=== PATIENT | female | born 1995 | race Caucasian/White ===

== ENCOUNTER 2023-06-04 13:12 | Emergency (ER) | payer SELFPAY ==
[2023-06-04 13:15] VITALS: BP 138/87; PULSE 100; RESP 19; TEMP 36.6; O2SAT 100; BMI 24.8
--- NOTE | 2023-06-04 13:15 | ED.EYEPROB ---
HPI - Eye Problem General Chief complaint: Eye Problems Stated complaint: ? Eye Infection Time Seen by Provider: 06/04/23 13:44 Source: patient and RN notes reviewed Mode of arrival: ambulatory Limitations: no limitations History of Present Illness HPI Narrative: This is a 27-year-old female presenting to the emergency department for evaluation of bilateral eye swelling times 2 weeks. Patient reports that over the last 2 weeks she has noticed increased swelling to her right upper lid and left lower lid. She has been applying warm compresses to the area without any relief. She states that she has a history of styes, states that since December she has had ongoing problems with styes. Denies any new soaps, lotions, detergents. She denies any fevers, chills. She does not wear eye makeup or false eyelashes. She does have an eye doctor who she can follow-up with. She denies any visual changes, blurred vision, eye pain. Denies any other complaints or concerns at this time. Onset (ago): week(s) Onset description: gradual Duration: constant Location: both eyes Mechanism: none Associated symptoms: none Treatments Prior to Arrival: none Related Data Previous Rx's Medication Instructions Recorded erythromycin 5 mg/gram (0.5 %) eye 0.5 inch ophthalmic (eye) QID 7 06/04/23 ointment days #3.5 grams Allergies Allergy/AdvReac Type Severity Reaction Status Date / Time No Known Allergies Allergy Verified 06/04/23 13:14 Review of Systems Review of Systems: Yes all other systems are reviewed and are negative [facility] Social History Social History Advance Directives: No Advance Directives Information Provided: No Physical Exam Vital Signs: Vital Signs: Last Vital Signs Temp 98 F 06/04/23 13:15 Pulse 100 06/04/23 13:15 Resp 19 06/04/23 13:15 BP 138/87 06/04/23 13:15 Pulse Ox 100 06/04/23 13:15 O2 Del Method Room Air 06/04/23 13:15 BMI result Body Mass Index 24.8 Const: Other: General: Awake, alert, and oriented X3. No acute distress. HEENT: Left external eyelid at the eyelash line there is a 2 mm pustule noted with surrounding edema and erythema, no periorbital edema or erythema. No orbital entrapment. Conjunctiva is not injected. Right eye with upper eyelid edematous, and erythematous. No discrete hordeolum noted. EOMI, PERRLA. No fluorescein uptake on fluorescein examination Normal inspection CVS: Normal heart rate and rhythm. Pulses normal. Respiratory: No respiratory distress Skin: Warm, dry, no rashes noted to exposed skin. Normal skin color. Normal skin turgor. Extremities: Normal to inspection Neuro: Oriented X 3. No motor deficit. No sensory deficit. Course Course Course Narrative: RME:?27 yo female here for eval of eyelid pain/swelling x2 weeks. began with right eye, has now moved to left eye. applying warm compresses every day throughout day without relief. endorses fluffy vision to left eye and drainage from right eye. endorses occasional pain w/ eye movements. endorses stye last year requiring abx. consistent with stye however given vision changes VA, tetracaine, fluoresceine stain ordered Full HPI, ROS and PE to be performed by the primary ED provider. Medications Administered Discontinued Medications Generic Name Dose Route Start Last Admin Trade Name Ramonq PRN Reason Stop Dose Admin Fluorescein Sodium 1 strip 06/04/23 13:17 06/04/23 13:57 Fluorescein Sodium Strip EYE-BOTH 06/04/23 13:18 1 strip ONCE ONE Administration Tetracaine HCl 1 drop 06/04/23 13:17 06/04/23 13:57 Tetracaine Hcl/Pf 0.5% Oph Hannah 4 Ml Drops EYE-BOTH 06/04/23 13:18 1 drop ONCE ONE Administration Medical Decision Making Medical Decision Making MDM Narrative: This is a 27-year-old female presenting to the emergency department with complaints of bilateral eye redness, swelling for the last several weeks. On arrival, vital signs within normal limits. Patient has a hordeolum noted to her left lower eyelid as well as blepharitis noted to her right upper eyelid. Fluorescein stain was performed, no fluorescein uptake noted. She has no eye tenderness, vision changes to suggest periorbital or orbital cellulitis. She has no entrapment. PERRLA, EOMI. Will treat with topical erythromycin ointment, advised to follow-up with eye physician. She understands and agrees with plan. Patient given return precautions. Patient stable for discharge Differential Diagnosis Differential Diagnoses: The differential diagnosis associated with the presentation includes Hordeolum, blepharitis, periorbital cellulitis, orbital cellulitis, corneal abrasion, laceration, foreign body Discharge Plan Discharge Clinical Impression: Hordeolum, Blepharitis Patient Disposition: Home, Self-Care Instructions: Stye (ED), Blepharitis (ED) Additional Instructions: You were seen in the emergency department due to bilateral eye redness and swelling. Use erythromycin as directed for the next 7 days. Warm compresses to both of your eyes at least 5-6 times per day will help eliminate your symptoms If any new or worsening symptoms occur including but not limited to worsening swelling, redness, fevers or chills, please return for re-evaluation. Follow-up with your eye doctor. Prescriptions: New erythromycin 5 mg/gram (0.5 %) ointment 0.5 inch ophthalmic (eye) QID 7 Days Qty: 3.5 0RF Stand Alone Forms: Work/School Release Interventions: ED Discharge Assessment Last Done: 06/04/23 15:31 Discharge Date/Time: 06/04/23 15:53
[2023-06-04] MEDS: Fluorescein Sodium STRIP 1 STRIP EYE-BOTH (13:57)
[2023-06-04] MEDS: Tetracaine HCl/PF 0.5% Oph Sol 4 ML DROPS 1 DROP EYE-BOTH (13:57)
== END 2023-06-04 15:53 | disposition home or self-care (01) ==
PROVIDERS: Emergency Provider Emergency Medicine
DX: H00.019 Hordeolum externum unspecified eye, unspecified eyelid (principal); H01.006 Unspecified blepharitis left eye, unspecified eyelid; H01.003 Unspecified blepharitis right eye, unspecified eyelid; H57.13 Ocular pain, bilateral
CPT/HCPCS: 99282; 99283

== ENCOUNTER 2023-06-05 09:51 | Emergency (ER) | payer OTHER, SELFPAY ==
[2023-06-05 09:54] VITALS: BP 132/95; PULSE 82; RESP 18; TEMP 36.7; O2SAT 99; BMI 24.8
--- NOTE | 2023-06-05 10:44 | ED.EYEPROB ---
HPI - Eye Problem General Chief complaint: Eye Problems Stated complaint: seen 06/05, medication allergic reaction Time Seen by Provider: 06/05/23 10:13 Source: patient Mode of arrival: ambulatory Limitations: no limitations History of Present Illness HPI Narrative: this is a 27-year-old female who has a history of styes and is followed by an customer care associate. She was seen here yesterday after noticing 2 weeks of increasing swelling to the right upper eyelid and left lower eyelid despite using warm compresses. She was diagnosed with an hordeolum as well as blepharitis and was discharged home with erythromycin eye ointment. Patient reports she has been using this and using warm compresses with continued symptoms. She notices that after using the ointment she does have some blurry vision which resolves after a brief time. she does have swelling to the eyelids as well as some discomfort but denies any discharge from the eyes, photophobia, pain in the eyes Related Data Previous Rx's Medication Instructions Recorded erythromycin 5 mg/gram (0.5 %) eye 0.5 inch ophthalmic (eye) QID 7 06/04/23 ointment days #3.5 grams doxycycline monohydrate 100 mg 100 mg PO BID #20 caps 06/05/23 capsule fluconazole 150 mg tablet 150 mg PO Q3D 2 doses #2 tabs 06/05/23 Allergies Allergy/AdvReac Type Severity Reaction Status Date / Time No Known Allergies Allergy Verified 06/05/23 09:53 Review of Systems Review of Systems: Yes all other systems are reviewed and are negative Constitutional: Constitutional: Reports no additional constitutional complaints, Denies body ache(s), Denies chills, Denies fever(s), Denies headache(s) and Denies weakness Eyes: Eyes: Reports no additional eye complaints, Reports blurry vision, Denies change in vision, Denies eye discharge, Reports irritation, Denies eye pain and Denies photophobia Comments: +eyelid swelling ENT: Reports system reviewed and no additional complaints, except as documented, Denies dizziness, Denies headache(s), Denies nasal congestion, Denies nasal discharge and Denies neck pain Cardiovascular: Cardiovascular: Reports no additional cardiovascular complaints, Denies chest pain, Denies leg edema and Denies dyspnea Respiratory: Respiratory: Reports no additional respiratory complaints, Denies cough and Denies dyspnea Gastrointestinal: Gastrointestinal: Reports no additional gastrointestinal complaints, Denies abdominal pain, Denies diarrhea, Denies nausea and Denies vomiting Genitourinary: Genitourinary: Reports no additional female genitourinary complaints and Denies urinary incontinence Musculoskeletal: Musculoskeletal: Reports no additional musculoskeletal complaints, Denies back pain, Denies arthralgias, Denies joint swelling, Denies neck pain, Denies numbness and Denies tingling Integumentary/Breasts: Skin/Breast: Reports system reviewed and no additional complaints, except as docu and Denies rash Neurologic: Reports system reviewed and no additional complaints, except as documented, Denies Abnormal speech present, Denies dizziness, Denies headache(s), Denies numbness, Denies tingling and Denies weakness PMFSH Past Medical History Attestation statement: The following information was validated with the patient. Source: old records reviewed and nursing notes reviewed Social History Social History Advance Directives: No Advance Directives Information Provided: No Physical Exam Vital Signs: Vital Signs: Last Vital Signs Temp 98.0 F 06/05/23 09:54 Pulse 82 06/05/23 09:54 Resp 18 06/05/23 09:54 BP 132/95 H 06/05/23 09:54 Pulse Ox 99 06/05/23 09:54 O2 Del Method Room Air 06/05/23 09:54 BMI result Body Mass Index 24.8 Const: General: cooperative, healthy appearing, comfortable and no acute distress Orientation/consciousness: patient oriented x3 Limitations: no limitations HEENT: Head: Yes normal to inspection Ears: hearing grossly normal bilaterally General nose exam: Normal external nose present Face and sinus: Yes normal facial exam Mouth: Normal oral and palatal mucosa present Throat: Yes posterior oropharynx normal Eyes: Other: there is a hordeolum noticed to the right upper eyelid and left lower eyelid. There is swelling and erythema extending across both of the right upper eyelid and left lower eyelid General: appearance normal, both eyes and all related structures Visual Govea: normal visual govea by confrontation Alignment and Position: alignment normal Periorbital: periorbital findings normal Conjunctivae: conjunctivae normal Sclerae: sclerae normal Corneas: corneas normal Pupils: Equal, round and reactive pupils present EOM: EOMs intact bilaterally Direct Ophthalmoscopy: normal light reflex, no photophobia, anterior chamber normal and No photophobia Neck: Neck: Yes normal visual inspection Chest: Chest palpation & inspection: normal inspection of the chest Resp: Effort & Inspection: normal respiratory effort Auscultation: clear to auscultation bilaterally Cardio: Rate: regular rate Rhythm: regular rhythm Peripheral pulses: Peripheral pulses 2+ throughout GI: Inspection: Yes normal to inspection Palpation (GI): Soft to palpation and nontender Auscultation: normal bowel sounds Back/Spine/Pelvis: Thoracic/Lumbar Spine: thoracic and lumbar spine normal to inspection Skin: General skin exam: no rashes or lesions noted Neuro: General: patient oriented x3, no focal motor deficits and normal sensation to monofilament Cranial nerves: Yes Equal, round and reactive pupils present Cognition (Neuro): normal cognition Speech: No Abnormal speech present Gait exam (Neuro): Normal gait present Motor exam (neuro): 5/5 motor strength present throughout Extrem: General: Yes normal to inspection Medical Decision Making Medical Decision Making MDM Narrative: this is a 27-year-old female who has a history of styes and is followed by an customer care associate. She was seen here yesterday after noticing 2 weeks of increasing swelling to the right upper eyelid and left lower eyelid despite using warm compresses. She was diagnosed with an hordeolum as well as blepharitis and was discharged home with erythromycin eye ointment. Patient reports she has been using this and using warm compresses with continued symptoms. She notices that after using the ointment she does have some blurry vision which resolves after a brief time. she does have swelling to the eyelids as well as some discomfort but denies any discharge from the eyes, photophobia, pain in the eyes there is a hordeolum noticed to the right upper eyelid and left lower eyelid. There is swelling and erythema extending across both of the right upper eyelid and left lower eyelid exam otherwise is benign. I would recommend the patient continue erythromycin ointment as well as topical compresses but I will also add an oral antibiotic to cover blepharitis. Patient does have an customer care associate who recommended she continue to follow-up with next week. I did review worrisome signs and symptoms of when to return to the emergency room. Comfortable plan for discharge home Differential Diagnosis Differential Diagnoses: The differential diagnosis associated with the presentation includes blepharitis, hordeolum, chalazion low suspicion for conjunctivitis, corneal abrasion, corneal foreign body, orbital cellulitis Admission/Observation Consideration of admission/observation: Escalation of care including admission/observation considered External Record Review External record reviewed: Outside ED record Tests considered The following testing was considered but not selected: low suspicion for orbital cellulitis warranting additional imaging Prescription Management I considered prescription management with: Antibiotic Discharge Plan Discharge Clinical Impression: Hordeolum, Blepharitis Patient Disposition: Home, Self-Care Instructions: Stye (ED), Blepharitis (ED) Additional Instructions: continue the ointment but use it twice daily Warm compresses as often as possible Call your eye doctor Wednesday to set up a follow-up appointment Prescriptions: New doxycycline monohydrate 100 mg capsule 100 mg PO BID Qty: 20 0RF fluconazole 150 mg tablet 150 mg PO Q3D Qty: 2 0RF No Action erythromycin 5 mg/gram (0.5 %) ointment 0.5 inch ophthalmic (eye) QID 7 Days Qty: 3.5 0RF
== END 2023-06-05 11:02 | disposition home or self-care (01) ==
PROVIDERS: Emergency Provider Emergency Medicine
DX: H00.015 Hordeolum externum left lower eyelid (principal); H00.011 Hordeolum externum right upper eyelid; H01.009 Unspecified blepharitis unspecified eye, unspecified eyelid
CPT/HCPCS: 99283

== ENCOUNTER 2023-09-15 07:25 | Emergency (ER) | payer MEDICAID, SELFPAY ==
[2023-09-15 07:45] VITALS: BP 120/64; PULSE 99; RESP 18; TEMP 37.1; O2SAT 99; BMI 23.0
[2023-09-15 07:59] LABS: MANUAL DIFF FLAG NO
[2023-09-15 08:07] LABS: Basophils Absolute Auto 0.1 X10*3/uL (0.0-0.2); Basophils Percent Auto 0.4 % (0-2); Eosinophils Percent Auto 0.2 % (0-4); Hematocrit 40.6 % (37.0-47.0); Hemoglobin 14.4 g/dl (12.0-16.0); Imm Gran Abs Auto 0.07 X10*3/uL (0.00-0.03); Imm Gran Pct Auto 0.6 % (0.0-0.4); Lymphocytes Absolute Auto 1.7 X10*3/uL (1.2-4.9); Lymphocytes Percent Auto 14.8 % (20-40); Mean Corpuscular HGB Conc 35.5 g/dl (31.0-35.0); Mean Corpuscular Volume 84.6 fL (80.0-98.0); Mean Platelet Volume 9.9 fL (9.4-12.3); Monocytes Percent Auto 8.6 % (2-11); Neutrophils Absolute Auto 8.8 x10*3/uL (2.0-8.3); Neutrophils Percent Auto 75.4 % (45-73); Platelet Count 294 X10*3/uL (160-400); White Blood Count 11.6 X10*3/uL (4.8-10.8)
[2023-09-15 08:22] LABS: Alanine Aminotransferase 9 U/L (0-31); Albumin Level 4.6 g/dL (3.5-5.0); Alkaline Phosphatase 60 U/L (39-117); Anion Gap 15 (12-20); Aspartate Amino Transferase 16 U/L (5-31); Blood Urea Nitrogen 8 mg/dL (9-16); Calcium 10.4 mg/dL (8.4-10.2); Carbon Dioxide 20 mmol/L (22-29); Chloride 105 mmol/L (96-108); Creatinine Clr Calc Pharmacy 86.3; Estimated Glomerular Filt Rate > 60; Glucose Random 96 mg/dL (60-115); Potassium 3.7 mmol/L (3.3-5.1); Sodium 136 mmol/L (135-145); Total Protein 8.2 g/dL (6.5-8.0)
[2023-09-15 08:28] LABS: Appearance Urine Cloudy; Color Urine Dark Yellow; Glucose Urine UA Negative (Negative); Leukocyte Esterase Urine Negative (Negative); Nitrite Urine Negative (Negative); Specific Gravity - Urine >= 1.030 (1.005-1.025); UMIC TRIGGER UACC YES; Urine Blood Trace (Negative); Urine Ketones >=160 mg/dL (Negative); Urine Protein 30 (1+) mg/dL (Neg-Trace)
[2023-09-15 08:42] LABS: Bacteria Urine 4+ (None Seen); WBC Urine 0-5 /HPF (0-5)
[2023-09-15 08:43] LABS: HCG Quantitative 57939 mIU/mL
[2023-09-15 08:46] LABS: Influenza A PCR NEGATIVE (Negative); Influenza B PCR NEGATIVE (Negative); Resp Syncy Virus RNA Qual PCR NEGATIVE (Negative); SARS COV2 PCR INHOUSE NEGATIVE (Negative)
[2023-09-15] MEDS: 0.9 % Sodium Chloride 1,000 ML 999 ML IV ×3 (08:47→10:28)
--- NOTE | 2023-09-15 08:57 | ED.NAVMDI ---
HPI - Nausea/Vomiting/Diarrhea General Chief complaint: Nausea/Vomiting/Diarrhea Stated complaint: miscarriage, vomiting Time Seen by Provider: 09/15/23 08:38 Source: patient and old records reviewed Mode of arrival: ambulatory Limitations: no limitations History of Present Illness ED Provider: DENISE GALVAN Narrative: 27 yo female with D = US confirmed IUP with OB and [facility], she was recently worked up for vaginal bleeding over the weekend that has resolved. She notes she has had persistent n/v that has not responded to oral medications by OB or ER. She has diffuse mild cramping abdominal pain today and persistent n/v that will not go away x 2 days. She is weak and tired. MD elicited complaint: nausea, vomiting and abdominal pain Pertinent past history: other (hyperemesis) Onset (ago): day(s) (2) Description of vomiting: watery Associated nausea: Yes Associated abdominal pain: Yes Location of pain: diffuse Radiation: diffuse Pain consistency: intermittent Severity: mild Quality: aching Exacerbating factors: eating Relieving factors: none Context: other (hyperemesis) Associated symptoms: loss of appetite, nausea/vomiting and weakness Treatment prior to arrival: other Related Data Previous Rx's ?Medication ?Instructions ?Recorded erythromycin 5 mg/gram (0.5 %) eye 0.5 inch ophthalmic (eye) QID 7 06/04/23 ointment days #3.5 grams doxycycline monohydrate 100 mg 100 mg PO BID #20 caps 06/05/23 capsule fluconazole 150 mg tablet 150 mg PO Q3D 2 doses #2 tabs 06/05/23 ondansetron 4 mg disintegrating 4 mg PO Q8H PRN nausea and 09/15/23 tablet vomiting #20 tabs promethazine 25 mg rectal 25 mg VT Q6H PRN nausea and 09/15/23 suppository vomiting #12 ea Allergies Allergy/AdvReac Type Severity Reaction Status Date / Time No Known Allergies Allergy Verified 09/15/23 07:48 Review of Systems Review of Systems: Constitutional : No Weight loss, No Fever, No Chills ENT/Mouth : No sore throat, No Rhinorrhea Eyes: No Swelling, No Redness Cardiovascular : No Chest Pain, No SOB, NoEdema Respiratory : No Cough, No Sputum, No Wheezing Gastrointestinal : Positive Nausea, Positive Vomiting, no Diarrhea, positive abdominal Pain, No Hematochezia, No Melena Genitourinary : No Dysuria, No Urinary Frequency, No Hematuria, No Urgency Musculoskeletal : No joint pain, No Myalgias, No Joint Swelling Skin : No Skin Lesions, No rash Neuro : No Weakness, No Numbness, No Dizziness, No Headache All other systems reviewed and are negative. Gastrointestinal: Gastrointestinal: Reports nausea PMFSH Past Medical History Attestation statement: The following information was validated with the patient. Source: old records reviewed Medical History Hyperemesis Social History Social History Smoked in Last 30 Days: No Use of substances other than those prescribed or required for medical reasons: No Advance Directives: No Advance Directives Information Provided: No Patient : Yes Physical Exam Vital Signs: Vital Signs: Last Vital Signs Temp 98.1 F 09/15/23 13:16 Pulse 62 09/15/23 13:16 Resp 16 09/15/23 13:16 BP 97/49 L 09/15/23 13:16 Pulse Ox 99 09/15/23 13:16 O2 Del Method Room Air 09/15/23 13:16 BMI result Body Mass Index 23.0 Appearance: Alert. Oriented X3. Mild acute distress. Eyes: Pupils equal, round and reactive to light. ENT: Pharynx dry MM Neck: Normal inspection. Neck supple. CVS: Normal heart rate and rhythm. Pulses normal. Respiratory: No respiratory distress. Breath sounds normal. Abdomen: Soft and non-tender. benign Skin: Skin warm and dry. pale skin color. Extremities: No lower extremity edema. Neuro: Oriented X 3. No motor deficit. No sensory deficit. Medications Administered Discontinued Medications Generic Name Dose Route Start Last Admin Trade Name Freq PRN Reason Stop Dose Admin Diphenhydramine HCl 25 mg 09/15/23 08:38 09/15/23 09:04 Diphenhydramine Hcl 50 Mg/Ml Vial IVPUSH 09/15/23 08:39 25 mg ONCE ONE Administration Sodium Chloride 1,000 mls @ 999 mls/hr 09/15/23 08:38 09/15/23 10:28 Ns IV 09/15/23 09:38 Infused .Q1H1M ONE Infusion Sodium Chloride 1,000 mls @ 999 mls/hr 09/15/23 08:38 09/15/23 10:28 Ns IV 09/15/23 09:38 Infused .Q1H1M ONE Infusion Sodium Chloride 1,000 mls @ 999 mls/hr 09/15/23 09:28 09/15/23 11:52 Ns IV 09/15/23 10:28 Infused .Q1H1M ONE Infusion Metoclopramide HCl 10 mg 09/15/23 08:38 09/15/23 09:04 Metoclopramide Hcl 10 Mg/2 Ml Vial IVPUSH 09/15/23 08:39 10 mg ONCE ONE Administration Ondansetron HCl 4 mg 09/15/23 09:28 09/15/23 10:00 Ondansetron Hcl 4 Mg/2 Ml Vial IVPUSH 09/15/23 09:29 4 mg ONCE ONE Administration Procedures Procedure Narrative Procedure Narrative: US bedside + cardiac flicker + IUP no free fluid Medical Decision Making Medical Decision Making [facility] Narrative: 27 yo female with 7 weeks D = US here with c/o persistent n/v x weeks now cannot keep down PO has abdominal cramps does not feel well at this time will need labs, UA, IVF x 2L, supportive medications has already has US confirming IUP denies vaginal bleeding today. Will PO challenge after fluids. Differential Diagnosis Differential Diagnoses: The differential diagnosis associated with the presentation includes hyperemesis, dehydration Admission/Observation Consideration of admission/observation: Escalation of care including admission/observation considered suspect error in BP 80/30 asymptomatic and laying on her side at this time tolerating PO feels much better stable for DC Lab Data [facility] Lab Attestation statement: I reviewed the patient's lab results. 09/15/23 07:55 09/15/23 07:55 Labs: Lab Results 09/15/23 09/15/23 Range/Units 07:55 08:19 WBC 11.6 H (4.8-10.8) X10*3/uL RBC 4.80 (4.20-5.50) X10*6/uL Hgb 14.4 (12.0-16.0) g/dl Hct 40.6 (37.0-47.0) % MCV 84.6 (80.0-98.0) fL MCH 30.0 (27.0-33.0) pg MCHC 35.5 H (31.0-35.0) g/dl RDW 13.0 (11.0-16.0) % Plt Count 294 (160-400) X10*3/uL MPV 9.9 (9.4-12.3) fL Immature Gran % (Auto) 0.6 H (0.0-0.4) % Neut % (Auto) 75.4 H (45-73) % Lymph % (Auto) 14.8 L (20-40) % [place] % (Auto) 8.6 (2-11) % Eos % (Auto) 0.2 (0-4) % Baso % (Auto) 0.4 (0-2) % Lymph # (Auto) 1.7 (1.2-4.9) X10*3/uL [place] # (Auto) 1.0 (0.1-1.2) X10*3/uL Eos # (Auto) 0.0 (0.0-0.4) X10*3/uL Baso # (Auto) 0.1 (0.0-0.2) X10*3/uL Abs Immat Gran (auto) 0.07 H (0.00-0.03) X10*3/uL Absolute Neuts (auto) 8.8 H (2.0-8.3) x10*3/uL Absolute Nucleated RBC 0.000 (0.0-0.012) X10*3/uL Nucleated RBC % (auto) 0.0 (0.0-0.2) /100WBC Sodium 136 (135-145) mmol/L Potassium 3.7 (3.3-5.1) mmol/L Chloride 105 (96-108) mmol/L Carbon Dioxide 20 L (22-29) mmol/L Anion Gap 15 (12-20) BUN 8 L (9-16) mg/dL Creatinine 0.81 (0.5-1.4) mg/dL Estim Creat Clear Calc 86.3 Estimated GFR > 60 Random Glucose 96 (60-115) mg/dL Calcium 10.4 H (8.4-10.2) mg/dL Total Bilirubin 1.0 (0.0-1.0) mg/dL AST 16 (5-31) U/L ALT 9 (0-31) U/L Alkaline Phosphatase 60 (39-117) U/L Total Protein 8.2 H (6.5-8.0) g/dL Albumin 4.6 (3.5-5.0) g/dL Beta HCG, Quant 42581 mIU/mL Urine Color Dark Yellow Urine Appearance Cloudy Urine pH 6.0 (5.0-9.0) Ur Specific [place] >= 1.030 H (1.005-1.025) Urine Protein 30 (1+) H (Neg-Trace) mg/dL Urine Glucose (UA) Negative (Negative) mg/dL Urine Ketones >=160 (Negative) mg/dL Urine Blood Trace H (Negative) Urine Nitrite Negative (Negative) Ur Leukocyte Esterase Negative (Negative) Urine RBC 6-10 H (0-2) /HPF Urine WBC 0-5 (0-5) /HPF Ur Squamous Epith Cells 11-20 (0-2) /HPF Urine Bacteria 4+ (None Seen) Hyaline Casts 3-5 (0-2) /LPF Influenza Type A (PCR) NEGATIVE (Negative) Influenza Type B (PCR) NEGATIVE (Negative) RSV RNA Qual (PCR) NEGATIVE (Negative) SARS-CoV-2 RNA (RT-PCR) NEGATIVE (Negative) Independent Interpretation I performed an independent interpretation of an: Ultrasound Interpretation: + FM, flicker seen for cardiac activity + IUP noted Radiology Impression Discussion of test interpretation with radiology: I have reviewed the radiologist's reading. External Record Review External record reviewed: Office record Prescription Management I considered prescription management with: Other Critical Care Time Critical Care Time Critical Care Time: Yes Total Critical Care Time: 60 Attestation: 3L of IVF for resuscitation, review of records, repeat assessment I attest to this time spent taking care of the patient Discharge Plan Discharge Clinical Impression: Hyperemesis Patient Disposition: Home, Self-Care Instructions: Hyperemesis Gravidarum (ED) Additional Instructions: drink plenty of fluids stay hydrated eat a balanced diet and return for any worsening symptoms or concerns follow up with your OBGYN Prescriptions: New promethazine 25 mg suppository 25 mg VT Q6H PRN (Reason: nausea and vomiting) Qty: 12 0RF ondansetron 4 mg tablet,disintegrating 4 mg PO Q8H PRN (Reason: nausea and vomiting) Qty: 20 0RF No Action erythromycin 5 mg/gram (0.5 %) ointment 0.5 inch ophthalmic (eye) QID 7 Days Qty: 3.5 0RF doxycycline monohydrate 100 mg capsule 100 mg PO BID Qty: 20 0RF fluconazole 150 mg tablet 150 mg PO Q3D Qty: 2 0RF Stand Alone Forms: Work/School Release Print Language: Ma[place]
[2023-09-15] MEDS: Metoclopramide HCl 10 MG/2 ML VIAL IVPUSH (09:04)
[2023-09-15] MEDS: diphenhydrAMINE HCL 50 MG/ML VIAL 25 MG IVPUSH (09:04)
[2023-09-15] MEDS: ondansetron HCL 4 MG/2 ML VIAL IVPUSH (10:00)
[2023-09-15 11:18] VITALS: BP 102/64; PULSE 52; RESP 18; TEMP 36.9; O2SAT 99
[2023-09-15 12:00] VITALS: BP 80/35; PULSE 72; TEMP 36.9; O2SAT 98
[2023-09-15 13:16] VITALS: BP 97/49; PULSE 62; RESP 16; TEMP 36.7; O2SAT 99
[2023-09-15 13:50] VITALS: BP 100/64; PULSE 64; RESP 18; TEMP 36.8; O2SAT 99
== END 2023-09-15 13:51 | disposition home or self-care (01) ==
PROVIDERS: Emergency Provider Emergency Medicine
DX: O21.0 Mild hyperemesis gravidarum (principal); Z3A.01 Less than 8 weeks gestation of pregnancy; Z03.818 Encounter for observation for suspected exposure to other biological agents ruled out
CPT/HCPCS: 0241U; 36415; 80053; 81001; 84702; 85025; 96361; 96374; 96375; 99284; J1200; J2405; J2765

== ENCOUNTER 2025-01-09 19:02 | Emergency (ER) | payer MEDICAID, SELFPAY ==
--- NOTE | ~2025-01-09 | XR_ITS ---
CLINICAL HISTORY: abd pain 1 view abdomen Comparison: None provided Findings: No pneumoperitoneum or pneumatosis. No abnormal calcifications. No acute fractures. IMPRESSION: The bowel gas pattern is within normal limits This document has been electronically signed by: Padmaja Lopez MD on 01/09/2025 20:24:47
[2025-01-09 19:27] VITALS: BP 139/72; PULSE 89; RESP 16; TEMP 36.9; O2SAT 99; BMI 23.0
--- NOTE | 2025-01-09 19:29 | ED_ITS ---
HPI - Abdominal Pain General Chief Complaint: Abdominal Pain Stated Complaint: ?UTI Time Seen by Provider: 01/09/25 23:00 Source: patient Limitations: no limitations History of Present Illness ED Provider: Marly Reid PA-C HPI narrative: 29-year-old female who is otherwise healthy presents with dysuria x1 week. Associated pressure over the bladder, increased urinary frequency, with a constant sensation that she needs to void. Patient has also constipated she has not had a full bowel movement denies abdominal distention, nausea, vomiting or inability to pass flatus. Denies mid back pain or fever. Patient was seen at urgent Care, given Macrobid, they told her she did not have a urinary tract infection, but they treated her any ways. Related Data Previous Rx's ?Medication ?Instructions ?Recorded erythromycin 5 mg/gram (0.5 %) eye 0.5 inch ophthalmic (eye) QID 7 06/04/23 ointment days #3.5 grams doxycycline monohydrate 100 mg 100 mg PO BID #20 caps 06/05/23 capsule fluconazole 150 mg tablet 150 mg PO Q3D 2 doses #2 tab s 06/05/23 ondansetron 4 mg disintegrating 4 mg PO Q8H PRN nausea and 09/15/23 tablet vomiting #20 tabs promethazine 25 mg rectal 25 mg MN Q6H PRN nausea and 09/15/23 suppository vomiting #12 ea phenazopyridine 200 mg tablet 200 mg PO TID PRN pain # 10 tabs 01/10/25 (Pyridium) Allergies Allergy/AdvReac Type Severity Reaction Status Date / Time No Known Allergies Allergy Verified 01/09/25 19:30 Review of Systems Review of Systems Yes all other systems are reviewed and are negative Constitutional: Denies fatigue and Denies fever(s) Gastrointestinal: Reports abdominal pain, Reports constipation, Denies nausea and Denies vomiting Genitourinary: Reports dysuria and Denies flank pain Musculoskeletal: Denies back pain Endocrine: Denies fatigue [facility] Past Medical History Attestation statement: The following information was validated with the patient. Medical History Hyperemesis Social History Social History Smoked in Last 30 Days: Yes Use of substances other than those prescribed or required for medical reasons: Yes Substance Use Type: Marijuana Advance Directives: No Advance Directives Information Provided: No Do you have a plan to hurt others: No Plan Physical Exam ED Vital Signs: Vital Signs - 24 hr 01/09/25 19:27 01/09/25 22:04 01/10/25 00:13 Temperature 98.5 F 98.5 F 98.5 F Pulse Rate 89 80 61 Respiratory Rate 16 16 16 Blood Pressure 139/72 124/77 117/81 Pulse Oximetry 99 98 99 Oxygen Delivery Method Room Air Room Air Room Air BMI result Body Mass Index 23.0 Const Other: Alert Orientation/consciousness: patient oriented x3 Resp Effort & Inspection: normal respiratory effort Cardio Other: Normal peripheral perfusion GI Other: Abdomen is soft, nondistended, mild tenderness over suprapubic region without guarding General: Yes no CVA tenderness Back/Spine/Pelvis Back: no CVA tenderness Skin Other: Warm dry no rash Neuro General: patient oriented x3, gait normal, no focal motor deficits and CN's II- XI intact bilaterally Psych Other: Cooperative Course Course Course Narrative: This is an RME: Additional HPI, ROS, PE not included below will be deferred to primary provider. RME assessment and note performed by: María Elena Painter PA-C This is a 29-year-old female who presents emergency department with complaints of lower abdominal pain x 5 days. Reporting constipation, has not been passing gas. No fevers. No abdominal surgeries. Last menstrual period was December 16. Denies concerns for sexually transmitted infections. Abdomen is soft however suprapubic region does feel firm, with tenderness palpation in this region. Normoactive bowel sounds present in all 4 quadrants. Plan: Labs, UA, KUB, bladder scan Medical Decision Making Medical Decision Making MDM Narrative: 29-year-old female who is otherwise healthy presents with dysuria x1 week. Associated pressure over the bladder, increased urinary frequency, with a constant sensation that she needs to void. Patient has also constipated she has not had a full bowel movement denies abdominal distention, nausea, vomiting or inability to pass flatus. Denies mid back pain or fever. Patient was seen at urgent Care, given Macrobid, they told her she did not have a urinary tract infection, but they treated her any ways. No chronic issues History: Per patient I have considered the following differential diagnoses: Urinary tract infection, constipation, bowel obstruction, pyelonephritis, renal colic Plan: Screening labs and a KUB were obtained from triage, the patient does indeed have a urinary tract infection. She is not having a fever, there was no CVA tenderness no active nausea vomiting to suggest pyelonephritis versus renal colic. We will be giving her Pyridium for her bladder spasm. She has some degree of stool burden on the x-ray without obstructive pattern, she also has no obstructive symptoms. We will send with home care instructions for constipation. I have independently reviewed the following tests: Labs: No leukocytosis, not anemic, not , urine is infected KUB:Findings: No pneumoperitoneum or pneumatosis. No abnormal calcifications. No acute fractures. IMPRESSION: The bowel gas pattern is within normal limits Differential Diagnosis Differential Diagnoses: The differential diagnosis associated with the presentation includes See medical decision-making Admission/Observation Consideration of admission/observation: Escalation of care including admission/observation considered Not applicable Lab Data MDM Lab Attestation statement: I reviewed the patient's lab results. 01/09/25 19:55 01/09/25 19:55 Labs: Lab Results 01/09/25 01/09/25 Range/Units 19:55 19:57 WBC 7.0 (4.8-10.8) X10*3/uL RBC 4.76 (4.20-5.50) X10*6/uL Hgb 13.6 (12.0-16.0) g/dl Hct 40.0 (37.0-47.0) % MCV 84.0 (80.0-98.0) fL MCH 28.6 (27.0-33.0) pg MCHC 34.0 (31.0-35.0) g/dl RDW 15.3 (11.0-16.0) % Plt Count 243 (160-400) X10*3/uL MPV 10.1 (9.4-12.3) fL Immature Gran % (Auto) 0.3 (0.0-0.4) % Neut % (Auto) 48.2 (45-73) % Lymph % (Auto) 32.0 (20-40) % Forrest % (Auto) 17.8 H (2-11) % Eos % (Auto) 1.0 (0-4) % Baso % (Auto) 0.7 (0-2) % Lymph # (Auto) 2.2 (1.2-4.9) X10*3/uL Forrest # (Auto) 1.3 H (0.1-1.2) X10*3/uL Eos # (Auto) 0.1 (0.0-0.4) X10*3/uL Baso # (Auto) 0.1 (0.0-0.2) X10*3/uL Abs Immat Gran (auto) 0.02 (0.00-0.03) X10*3/uL Absolute Neuts (auto) 3.4 (2.0-8.3) x10*3/uL Absolute Nucleated RBC 0.000 (0.0-0.012) X10*3/uL Nucleated RBC % (auto) 0.0 (0.0-0.2) /100WBC Sodium 140 (135-145) mmol/L Potassium 3.5 (3.3-5.1) mmol/L Chloride 106 (96-108) mmol/L Carbon Dioxide 25 (22-29) mmol/L Anion Gap 13 (12-20) BUN 10 (9-16) mg/dL Creatinine 0.83 (0.5-1.4) mg/dL Estim Creat Clear Calc 82.7 Estimated GFR > 60 Random Glucose 87 (60-115) mg/dL Calcium 9.3 D (8.4-10.2) mg/dL Total Bilirubin 0.4 (0.0-1.0) mg/dL Direct Bilirubin 0.2 (0.0-0.5) mg/dL AST 23 (5-31) U/L ALT 19 (0-31) U/L Alkaline Phosphatase 83 (39-117) U/L Total Protein 7.9 (6.5-8.0) g/dL Albumin 4.8 (3.5-5.0) g/dL Beta HCG, Quant < 2 mIU/mL Urine Color Yellow Urine Appearance Cloudy Urine pH 5.5 (5.0-9.0) Ur Specific Pelham >= 1.030 H (1.005-1.025) Urine Protein 300 (3+) H (Neg-Trace) mg/dL Urine Glucose (UA) Negative (Negative) mg/dL Urine Ketones 80 (Negative) mg/dL Urine Blood Large (3+) H (Negative) Urine Nitrite Negative (Negative) Ur Leukocyte Esterase Small (1+) H (Negative) Urine RBC >20 H (0-2) /HPF Urine WBC 21-50 H (0-5) /HPF Ur Squamous Epith Cells 3-5 (0-2) /HPF Urine Bacteria 1+ (None Seen) Hyaline Casts 0-2 (0-2) /LPF Radiology Impression Discussion of test interpretation with radiology: I have reviewed the radiologist's reading. Discharge Plan Discharge Clinical Impression: Constipation, Urinary tract infection Patient Disposition: Home, Self-Care Instructions: Constipation (ED), Urinary Tract Infection in Women (ED) Additional Instructions: You do have evidence of a urinary tract infection. See home care instructions. Complete the course of the prescribed Macrobid. Use the Pyridium as needed for bladder pain. Your urine we will become bright fluorescent orange this is normal it is a side effect. Be sure to increase your fluid intake The x-ray revealed that you are constipated. See home care instructions. Use [id number] Colace this is a stool softener, 1 to 2 times a day. You can also use [id number] MiraLax, 1 to 2 times a day, until your bowel habits self regulate. Follow up with primary care as needed. Prescriptions: New phenazopyridine [Pyridium] 200 mg tablet 200 mg PO TID PRN (Reason: pain) Qty: 10 0RF No Action erythromycin 5 mg/gram (0.5 %) ointment 0.5 inch ophthalmic (eye) QID 7 Days Qty: 3.5 0RF doxycycline monohydrate 100 mg capsule 100 mg PO BID Qty: 20 0RF fluconazole 150 mg tablet 150 mg PO Q3D Qty: 2 0RF promethazine 25 mg suppository 25 mg MN Q6H PRN (Reason: nausea and vomiting) Qty: 12 0RF ondansetron 4 mg tablet,disintegrating 4 mg PO Q8H PRN (Reason: nausea and vomiting) Qty: 20 0RF Stand Alone Forms: Work/School Release Print Language: Lithuanian
[2025-01-09 20:04] LABS: MANUAL DIFF FLAG NO
[2025-01-09 20:08] LABS: Hematocrit 40.0 % (37.0-47.0); Hemoglobin 13.6 g/dl (12.0-16.0); Imm Gran Abs Auto 0.02 X10*3/uL (0.00-0.03); Imm Gran Pct Auto 0.3 % (0.0-0.4); Lymphocytes Absolute Auto 2.2 X10*3/uL (1.2-4.9); Mean Corpuscular HGB Conc 34.0 g/dl (31.0-35.0); Mean Corpuscular Hemoglobin 28.6 pg (27.0-33.0); Mean Corpuscular Volume 84.0 fL (80.0-98.0); NRBC Abs Auto 0.000 X10*3/uL (0.0-0.012); NRBC Pct Auto 0.0 /100WBC (0.0-0.2); Platelet Count 243 X10*3/uL (160-400); Red Blood Count 4.76 X10*6/uL (4.20-5.50); White Blood Count 7.0 X10*3/uL (4.8-10.8)
[2025-01-09 20:15] LABS: Appearance Urine Cloudy; Glucose Urine UA Negative (Negative); PH 5.5 (5.0-9.0); Specific Gravity - Urine >= 1.030 (1.005-1.025); UMIC TRIGGER UACC YES
[2025-01-09 20:27] LABS: Alanine Aminotransferase 19 U/L (0-31); Albumin Level 4.8 g/dL (3.5-5.0); Alkaline Phosphatase 83 U/L (39-117); Anion Gap 13 (12-20); Aspartate Amino Transferase 23 U/L (5-31); Blood Urea Nitrogen 10 mg/dL (9-16); Calcium 9.3 mg/dL (8.4-10.2); Carbon Dioxide 25 mmol/L (22-29); Chloride 106 mmol/L (96-108); Creatinine Clr Calc Pharmacy 82.7; Estimated Glomerular Filt Rate > 60; Potassium 3.5 mmol/L (3.3-5.1); Sodium 140 mmol/L (135-145); Total Protein 7.9 g/dL (6.5-8.0)
[2025-01-09 20:43] LABS: UACC Culture Trigger YES
[2025-01-09 22:04] VITALS: BP 124/77; PULSE 80; RESP 16; TEMP 36.9; O2SAT 98
--- NOTE | 2025-01-09 22:11 | PC.NURSE ---
pt states at urgent care yesterday they told her she did not have any signs of a UTI or infection, but they prescribed an antibiotic. reports increase in abd pain, mild nausea, no fever, temp today 98.5.
--- NOTE | 2025-01-10 00:07 | PC.NURSE ---
pyridium unavailable in ED, available on S3, house SUP advised.
[2025-01-10 00:13] VITALS: BP 117/81; PULSE 61; RESP 16; TEMP 36.9; O2SAT 99
[2025-01-10 00:30] VITALS: BP 117/81; PULSE 61; RESP 16; TEMP 36.9; O2SAT 99
== END 2025-01-10 00:48 | disposition home or self-care (01) ==
PROVIDERS: Physician Assistant Medical; Emergency Provider Emergency Medicine; PCP Pediatrics
DX: N39.0 Urinary tract infection, site not specified (principal); K59.00 Constipation, unspecified; R30.0 Dysuria; R10.30 Lower abdominal pain, unspecified
CPT/HCPCS: 36415; 51798; 74018; 80048; 80076; 81001; 84702; 85025; 87086; 99283; 99284

== ENCOUNTER → 2025-01-09 19:31 | Outpatient (BNV) | payer MEDICAID, SELFPAY | PROVIDERS: PCP Pediatrics; Visit Provider Student in an Organized Health Care Education/Training Program | DX: R10.9 Unspecified abdominal pain (principal) | CPT/HCPCS: 74018 ==